=== PATIENT | female | born 1965 | race Caucasian/White ===

== ENCOUNTER 2024-02-25 17:37 | Inpatient (IN) | payer OTHER, SELFPAY ==
[2024-02-25] VITALS (9 sets, daily range): BP systolic 122–160; BP diastolic 55–85; BMI 29.2; BMI 27.5
--- NOTE | 2024-02-25 14:59 | ED.MUSCINJ ---
HPI-Injury
<Radha Woodward, FIRE PROTECTION DESIGNER - Last Filed: 02/26/24 11:35>
General
Chief Complaint: Fall
Source: patient and ambulance crew
Exam Limitations: none
Time Seen by Provider: 02/25/24 14:58
Nursing documentation reviewed up to this point in time: agreed with
History of Present Illness-Injury
Initial Injury comments:
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 Walkin up her daughter's driveway within past 2 hours, stumbled and fell injuring the left ankle.
Denies hitting head or any other injury. States minimal pain.
Past History
<Radha Woodward, FIRE PROTECTION DESIGNER - Last Filed: 02/26/24 11:35>
Past History
ED Past Medical History: Arrthythmia (afib), CVA, Hypercholesterolemia and Seizures
ED Past Surgical History: Appendectomy, Cardiac (pacemaker), , Gynecological and Orthopedic
Social History
Tobacco: Non-smoker
Alcohol: None
Personal:
Living: alone
Review of Systems
<Radha Woodward, FIRE PROTECTION DESIGNER - Last Filed: 02/26/24 11:35>
Review of Systems
Allergies reviewed?: Yes
All Other Systems: ROS reviewed and negative except as documented in HPI and ROS
Respiratory: Denies trouble breathing
Cardiac: Denies chest pain or syncope
ABD/GI: Denies nausea
Musculoskeletal: Reports other (left ankle injjury. Right leg weakness post CVA, wears brace, uses cane); Denies neck pain or back pain
Skin: Reports no symptoms
Neurological: Reports other (weakness right leg post CVA); Denies dizzy or headache
Phy Exam
<Radha Woodward, FIRE PROTECTION DESIGNER - Last Filed: 02/26/24 11:35>
Physical Exam
Physical Exam:
GENERAL: No acute distress. A&Ox3.
CONSTITUTIONAL: Afebrile.
EYES: clear, conjunctivae normal
ENMT: moist mucus membranes, Pharynx nl
RESPIRATORY: Regular respirations, nonlabored, lungs clear.
CARDIOVASCULAR: Regular rate and rhythm, no murmurs, no rubs.
GI: Soft, nontender, normal BS
MUSCULOSKELETAL: Swelling, tender left ankle. Distal n/v intact. moves toes well. Knee and rest of leg non tender. Moves with ease. Well perfused. Right leg in a brace, limited ROM
SKIN: Warm, dry, pink
PSYCH: Normal mood and affect. Well kept, interactive and appropriate
NEUROLOGIC: Awake, alert and oriented. No focal neurological deficits
Injury Course
<Radha Woodward, FIRE PROTECTION DESIGNER - Last Filed: 02/26/24 11:35>
Orders/Labs/Results
Orders:
Orders
02/25/24 14:58
Ankle, left 3 view CR [CR Ankle - Left Min 3 Views ] Urgent
Comment:
Reason For Exam: pain after fall
02/25/24 Dinner
Regular
At Your Request: Full Participation
02/25/24 15:08
CR Knee - Left 4 Or More View* Urgent
Comment:
Reason For Exam: left ankle injury
02/25/24 16:17
CT Lower Ext W/o Iv Cont Lt Urgent
Comment:
Reason For Exam: bimalleolar fx left ankle, ortho request
02/25/24 16:18
Electrocardiogram (*1) Urgent
Reason for Study: PreOp
EKG- Treatment ONCE
02/25/24 16:20
Morphine Sulfate 4 mg IV NOW STA
02/25/24 16:22
Stirrup Splint Left-Treatment ONCE
02/25/24 16:28
ORTHOPEDIC CONSULT Urgent
Consulting Provider: Luigi Howard
Was physician already notified: Yes
Reason for consult: bimalleolar left ankle fx
02/25/24 16:46
Complete Blood Count/With Diff Urgent
Comprehensive Metabolic Panel Urgent
02/25/24 17:07
Admit/Transfer Patient As Directed
Co-Sign Provider:
Level of Care: Inpatient admission
Assign to:: Medical/Surgical
Physician / Group: ivette
Diagnosis: left ankle fracture
Reason for Hospitalization: left ankle fracture
Expected length of stay greater than two midnights?: Yes
ELOS- Estimated Length of Stay in days: 2
I certify the patient meets the requirements for IP care: Yes
PRN Pain Medication Management As Directed
May give lesser potent ordered pain med per pt: Yes
preference::
Protocol:: Medication orders for pain may be administered in a
manner that supports deferring to patient preference
when the pt is:
- Requesting an ordered lesser potent pain medication.
Least to most potent pain medications are defined
as: acetaminophen < NSAID < tramadol < opioids
(morphine, oxycodone, hydromorphone).
- Requesting a lesser dose of the same medication IF
ORDERED.
- Requesting a less intrusive route of administration
if both routes are prescribed by the provider (PO <
IV).
02/25/24 17:08
Code Status As Directed
Resuscitation Status: Full Code
02/25/24 19:48
Acetaminophen [Tylenol] 650 mg PO Q4HPRN PRN
Atorvastatin [Lipitor] 40 mg PO QPM
Morphine Sulfate 2 mg IV Q4HPRN PRN
02/25/24 19:48
Activity As Directed
Activity Level: As Tolerated
Pneumatic Compression Sleeves As Directed
Type: Knee high
Vital Signs As Directed
Frequency: Per unit guidelines
DX Deep Vein Thrombosis Video Routine
02/25/24 20:00
Carbamazepine [Tegretol] 200 mg PO BID
Valproic Acid [Depakene] 750 mg PO BID
02/26/24 06:00
Levothyroxine [Synthroid] 88 mcg PO DAILY@0600
02/26/24 07:34
Complete Blood Count/With Diff IN AM
Comprehensive Metabolic Panel IN AM
02/26/24 08:00
Aspirin Low Dose EC [Aspir Low (Enteric Coated)] 81 mg PO DAILY
Carbamazepine [Tegretol] 400 mg PO DAILY
Famotidine [Pepcid] 20 mg PO DAILY
Sertraline HCl [Zoloft] 100 mg PO DAILY
Abnormal Lab Results
02/25/24
16:46
MPV 10.5 H fL
(7.4-10.4)
Creatinine 0.5 L mg/dL
(0.6-1.0)
Glucose 114 H mg/dl
(70-99)
ALT 41 H U/L
(0-35)
02/25/24 16:46
02/25/24 16:46
Yield Improvement Engineer consulted with Physician
Yield Improvement Engineer consulted with physician?: Yes
Name of Physician Consulted: Yogi
<Hammad Calix MD - Last Filed: 02/25/24 16:29>
Orders/Labs/Results
Orders:
Orders
02/25/24 14:58
Ankle, left 3 view CR [CR Ankle - Left Min 3 Views ] Urgent
Comment:
Reason For Exam: pain after fall
02/25/24 Dinner
Regular
At Your Request: Full Participation
02/25/24 15:08
CR Knee - Left 4 Or More View* Urgent
Comment:
Reason For Exam: left ankle injury
02/25/24 16:17
CT Lower Ext W/o Iv Cont Lt Urgent
Comment:
Reason For Exam: bimalleolar fx left ankle, ortho request
02/25/24 16:18
Electrocardiogram (*1) Urgent
Reason for Study: PreOp
EKG- Treatment ONCE
02/25/24 16:20
Morphine Sulfate 4 mg IV NOW STA
02/25/24 16:22
Stirrup Splint Left-Treatment ONCE
02/25/24 16:28
ORTHOPEDIC CONSULT Urgent
Consulting Provider: Luigi Howard
Was physician already notified: Yes
Reason for consult: bimalleolar left ankle fx
02/25/24 16:46
Complete Blood Count/With Diff Urgent
Comprehensive Metabolic Panel Urgent
02/25/24 17:07
Admit/Transfer Patient As Directed
Co-Sign Provider:
Level of Care: Inpatient admission
Assign to:: Medical/Surgical
Physician / Group: ivette
Diagnosis: left ankle fracture
Reason for Hospitalization: left ankle fracture
Expected length of stay greater than two midnights?: Yes
ELOS- Estimated Length of Stay in days: 2
I certify the patient meets the requirements for IP care: Yes
PRN Pain Medication Management As Directed
May give lesser potent ordered pain med per pt: Yes
preference::
Protocol:: Medication orders for pain may be administered in a
manner that supports deferring to patient preference
when the pt is:
- Requesting an ordered lesser potent pain medication.
Least to most potent pain medications are defined
as: acetaminophen < NSAID < tramadol < opioids
(morphine, oxycodone, hydromorphone).
- Requesting a lesser dose of the same medication IF
ORDERED.
- Requesting a less intrusive route of administration
if both routes are prescribed by the provider (PO <
IV).
02/25/24 17:08
Code Status As Directed
Resuscitation Status: Full Code
02/25/24 19:48
Acetaminophen [Tylenol] 650 mg PO Q4HPRN PRN
Atorvastatin [Lipitor] 40 mg PO QPM
Morphine Sulfate 2 mg IV Q4HPRN PRN
02/25/24 19:48
Activity As Directed
Activity Level: As Tolerated
Pneumatic Compression Sleeves As Directed
Type: Knee high
Vital Signs As Directed
Frequency: Per unit guidelines
DX Deep Vein Thrombosis Video Routine
02/25/24 20:00
Carbamazepine [Tegretol] 200 mg PO BID
Valproic Acid [Depakene] 750 mg PO BID
02/26/24 06:00
Levothyroxine [Synthroid] 88 mcg PO DAILY@0600
02/26/24 07:34
Complete Blood Count/With Diff IN AM
Comprehensive Metabolic Panel IN AM
02/26/24 08:00
Aspirin Low Dose EC [Aspir Low (Enteric Coated)] 81 mg PO DAILY
Carbamazepine [Tegretol] 400 mg PO DAILY
Famotidine [Pepcid] 20 mg PO DAILY
Sertraline HCl [Zoloft] 100 mg PO DAILY
Abnormal Lab Results
02/25/24
16:46
MPV 10.5 H fL
(7.4-10.4)
Creatinine 0.5 L mg/dL
(0.6-1.0)
Glucose 114 H mg/dl
(70-99)
ALT 41 H U/L
(0-35)
02/25/24 16:46
02/25/24 16:46
<Radha Penaloza Day, FIRE PROTECTION DESIGNER - Last Filed: 02/26/24 11:35>
MDM/Problems Addressed
Differential Diagnosis Includes:
ankle fracture, sprain, dislocation
MDM/Problems Addressed:
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 Walkin up her daughter's driveway within past 2 hours, stumbled and fell injuring the left ankle.
Denies hitting head or any other injury. States minimal pain.
4:20 p.m.
Xray left ankle: Read by this examiner: bimalleolar fracture, non displaced.
Xray left knee: Read by this examiner: normal
Consulted Orthopedic Dr. Howard, pictures sent.
He request patient be admitted to hospitalist and he will take her to surgery tomorrow. Patient and family informed and are in agreement.
Pt last ate 3 hours ago
Hospitalist notified of admission
Ortho consult in.
Chronic conditions affecting care: Arrhythmia (afib) and Neurological disorder (seizure)
<Radha Woodward NP - Last Filed: 02/26/24 11:35>
*Critical Care Note
Total Time (30-74mins, 75-104mins- exclusive of procedures): Not Applicable
ED Attending Note
<Radha Woodward FIRE PROTECTION DESIGNER - Last Filed: 02/26/24 11:35>
-
Portions of this chart may have been created with voice recognition software.� Occasional wrong word or��sound alike� substitutions may have occurred due to the inherent limitations of voice recognition software.
<Hammad Calix MD - Last Filed: 02/25/24 16:29>
ED Attending Note
Patient seen and examined by attending physician: Yes
ED Attending Note:
I have seen and evaluated the patient with a [id number] encounter. I have spoken to the advance practicer provider and involved in the medical history, the physical exam, medical decision making.
Evaluation and management service: agree unless noted differently below.
Results interpretation: agree unless noted differently below.
Focused HPI: 59-year-old female with history as documented presents to the ER for evaluation of left ankle injury. Patient was walking up the steps on the reports (she estimates 2 or 3 steps) and when she got to the stop she slipped and she fell.
She injured her left ankle she said she heard a snap. She denies any pain in the left knee. She says she did not hit her head or back and denies any headache, neck pain, back pain. No pain in the ribs or abdomen. No pain in the upper
extremities. She is not on blood thinners only baby aspirin.
Physical exam: Awake alert no distress. Hypertensive but otherwise normal vitals. Head is atraumatic. No tenderness in the cervical spine, no signs of trauma to the back or flank and no tenderness in thoracic or lumbar spine. No signs of trauma
the upper extremities. On exam of her left lower extremity she has deformity the left ankle with external rotation the left ankle compared to the knee. She has tenderness of both lateral and medial malleolus and swelling around the ankle. She has
a good strong DP pulse on the left. No tenderness of the left knee. Right lower extremity atraumatic.
Medical Decision Makin-year-old female presents for evaluation after slip and fall with left ankle injury. Suspect fracture. Will send for x-ray of the ankle and knee on the left. Pain control. Reassess after the above.
X-ray shows bimalleolar fracture. Nurse practitioner discussed with orthopedist�will splint, admit for OR tomorrow. Discussed with hospitalist.
Discharge Plan
Departure
Patient Disposition: Admit
Date of Disposition: 02/25/24
Time of Disposition: 16:19
Admit to: Med/Surg
Presentation/result/management discussed w/ accepting MD/DO: Hospitalist
Patient with high blood pressure during this ER visit?: No
Condition: Good
Discharge Problem:
Bimalleolar fracture of left ankle
Interventions
Interventions:
*General Assessment Last Done: 02/25/24 14:55
*ED COVID-19 Vaccine History Last Done: 02/25/24 14:55
*Nursing Disposition Last Done: 02/25/24 19:35
ED-Musculoskeletal Assessment Last Done: 02/25/24 16:00
ED- Neurological Assessment Last Done: 02/25/24 16:00
ED-Skin Assessment Last Done: 02/25/24 16:00
Discharge Date and Time
Discharge Date/Time: 02/25/24 19:35
[2024-02-25] MEDS: MORPHINE SULFATE 4 MG IV (16:53)
[2024-02-25 17:10] LABS: % Basophils 0.3 % (0-2); % Eosinophils 0.6 % (0-6); % Immature Granulocytes 0.3 % (0-0.5); % Lymphocytes 20.8 % (20.5-51.1); % Monocytes 6.5 % (1.7-9.3); % Neutrophils 71.5 % (42.2-75.2); Absolute Eosinophils 0.1 10^3/uL (0-0.7); Absolute Lymphocytes 1.9 10^3/uL (1.2-3.4); Absolute Monocytes 0.6 10^3/uL (0.1-0.6); Absolute Neutrophils 6.4 10^3/uL (1.4-6.5); Hematocrit 40.4 % (37.0-47.0); Hemoglobin 13.8 g/dL (12.0-16.0); Mean Corp Hgb Conc. 34.2 g/dL (33.0-37.0); Mean Corpuscular Hgb 30.6 pg (27.0-31.0); Mean Corpuscular Volume 89.6 fL (81.0-99.0); Mean Platelet Volume 10.5 fL (7.4-10.4); Nucleated Red Blood Cells % 0 %; Platelet Count 200 10^3/uL (130-400); Red Blood Cell Count 4.51 10^6/uL (4.20-5.40); Red Cell Dist. Width 12.7 % (11.5-14.5); White Blood Cell Count 8.9 10^3/uL (4.8-10.8)
--- NOTE | 2024-02-25 17:13 | HPS.HSE ---
Addendum entered and electronically signed by Vinnie Crenshaw MD 02/25/24 17:18:
Patient at elevated risk for cardiac complications post surgery due to history of Afib but appears well compensated and can proceed to surgery.
Original Note:
Family Physician
-
Family Physician: Wilfrid Awad
Chief Complaint
-
fall
History of Present Illness
59-year-old female past medical history of CVA with residual right leg weakness, seizure disorder, paroxysmal atrial fibrillation, pacemaker, PFO closure, hyperlipidemia presenting with left ankle injury. She was walking on her daughter's deck and
lost her balance and fell. She was having pain in her left ankle. Denies hitting her head. Denies dizziness or passing out.
She has some gait dysfunction from prior cerebellar CVA with residual right leg weakness.
Denies any chest pain or shortness of breath or swelling.
Denies smoking or alcohol use.
Medical History
Past Medical History
Past Medical History: Reports Other (CVA with residual right leg weakness, seizure disorder, paroxysmal atrial fibrillation, pacemaker, PFO closure, hyperlipidemia)
Past Surgical History: Reports Other ( Appendectomy, Cardiac (pacemaker), , Gynecological and Orthopedic)
Social History
Tobacco: Non-smoker
Alcohol: None
Drug: None
Family History
Family History: Not pertinent
Allergies / Home Medications
Allergies reflects when Allergies were last updated in [employer]
Home Medications with original date entered in [employer]
Allergy/Medication List:
Allergies
Allergy/AdvReac Type Severity Reaction Status Date / Time
hydromorphone HCl Allergy Unknown Verified 12/19/22 13:40
[From Dilaudid]
Home Medications
aspirin 81 mg tablet,delayed release (Ecotrin Low Strength) 81 mg PO DAILY 09/16/15
atorvastatin 40 mg tablet 40 mg PO QPM 09/16/15
carbamazepine 200 mg tablet 200 mg PO HS 09/16/15
carbamazepine 200 mg tablet 400 mg PO DAILY 09/16/15
levothyroxine 88 mcg tablet (Synthroid) 88 mcg PO DAILY 09/16/15
ranitidine HCl 150 mg capsule 150 mg PO DAILY 09/16/15
sertraline 100 mg tablet 100 mg PO DAILY 09/16/15
valproic acid 250 mg capsule 750 mg PO BID 09/16/15
Review of Systems
-
History Source: Patient
A 12 point ROS was completed and negative except as noted: Yes
Constitutional: Reports No Symptoms
EENT: Reports No Symptoms
Respiratory: Reports No Symptoms
Cardiac: Reports No Symptoms
Abdomen/GI: Reports No Symptoms
: Reports No Symptoms
Musculoskeletal: Reports See HPI
Skin: Reports No Symptoms
Neurological: Reports No Symptoms
Endocrine: Reports No Symptoms
Hematologic/Lymphatic: Reports No Symptoms
Psych: Reports No Symptoms
Physical Exam
Vital Signs
Vital Signs
Temp Pulse Resp BP Pulse Ox
98.3 F 72 18 154/83 100
02/25/24 14:55 02/25/24 14:55 02/25/24 14:55 02/25/24 14:55 02/25/24 14:55
Physical Exam
General: Well Developed, Well Nourished and No Apparent Distress
HEENT: NormoCephalic, Moist mucous membranes and Atraumatic
Respiratory: Clear
Cardiac: S1/S2 and Regular Rhythm; No Murmur or Rub
GI: Soft, Non Tender, Non Distended and Normal Bowel Sounds; No Organomegaly
Rectal: Deferred by Provider
Musculoskeletal: No Clubbing, No Cyanosis and No Edema
Skin: No Rash
Neuro: Nonfocal/grossly intact
Laboratory Results
-
02/25/24 16:46
Data Reviewed
-
Lab Data: Labs Reviewed by me
Old Records: Reviewed
Impression/Plan
-
IMPRESSION:
PLAN:
# Left ankle bimalleolar fracture
-CT scan pending
-Ortho consulted and planning for surgery tomorrow
-N.p.o. past midnight
-Tylenol, morphine for pain
-Labs pending
History of CVA x 2 with residual right leg weakness
-Continue aspirin
Seizure disorder
-Continue carbamazepine, valproic acid
History of paroxysmal atrial fibrillation with pacemaker
History of PFO closure
Hyperlipidemia
-Continue statin
Hypothyroidism
-Continue levothyroxine
Anxiety/depression
-Continue sertraline
History of hysterectomy
Full code
DVT prophylaxis�SCDs
N.p.o. past midnight
[2024-02-25 17:20] LABS: ALT (SGPT) 41 U/L (0-35); AST (SGOT) 22 U/L (14-36); Albumin 4.8 g/dl (3.5-5.0); Alkaline Phosphatase 83 U/L (38-126); Blood Urea Nitrogen 16 mg/dl (7-17); Calcium 9.3 mg/dl (8.4-10.2); Carbon Dioxide 25 mmol/L (22-30); Chloride 101 mmol/L (98-107); Estimated Creatinine Clearance 112 ml/min; Glucose 114 mg/dl (70-99); Potassium 4.4 mmol/L (3.5-5.1); Sodium 137 mmol/L (135-145); Total Bilirubin 0.3 mg/dl (0.2-1.3); Total Protein 7.5 g/dl (6.3-8.2); eGFR > 60.00
[2024-02-25] MEDS: LIPITOR 40 MG PO (20:21)
[2024-02-25] MEDS: MORPHINE SULFATE 2 MG IV ×2 (20:22→23:26)
--- NOTE | 2024-02-25 20:39 | CON.ORTHO ---
Consultation
-
Date/Time Consultation Requested: Feb 20
Date/Time Consultation Performed: Feb 20
Requesting Provider: ISHA Gutierrez
Performing Provider: [employer]
Reason for Consultation: Left ankle pilon fracture
Consultation - Orthopedics
History
HPI
Requested in consultation to this pleasant 59 y/o female with PMH of A-fib on ASA, Pacemaker, CVA x 2 with residual leg weakness, Hypercholesterolemia and Seizures after a mechanical fall in her daughter's driveway resulting in an injury to her left
ankle. Denies prodrome, LOC, or headstrike. No previous injuries or issues with the left ankle. Transported here to [facility] where xrays and a CT confirmed a pilon fracture of her left ankle.
Past History
Past Medical History: Arrthythmia (afib), CVA, Hypercholesterolemia and Seizures
Past Surgical History: Appendectomy, Cardiac (pacemaker), , Gynecological and Orthopedic
Social History
Tobacco: Non-smoker
Alcohol: None
Personal:
Living: alone
Family History:
Non-contributory
Review of Systems
Allergies reviewed?: Yes
All Other Systems: ROS reviewed and negative except as documented in HPI and ROS
Respiratory: Denies trouble breathing
Cardiac: Denies chest pain or syncope
ABD/GI: Denies nausea
Musculoskeletal: Reports other (left ankle injjury. Right leg weakness post CVA, wears brace, uses cane); Denies neck pain or back pain
Skin: Reports no symptoms
Neurological: Reports other (weakness right leg post CVA); Denies dizzy or headache
Allergies / Home Medications
Allergy/AdvReac Type Severity Reaction Status Date / Time
hydromorphone HCl Allergy Unknown Verified 12/19/22 13:40
[From Dilaudid]
�Medication �Instructions �Recorded
aspirin 81 mg tablet,delayed 81 mg PO HS 09/16/15
release (Ecotrin Low Strength)
carbamazepine 200 mg tablet 200 mg PO BID 09/16/15
levothyroxine 88 mcg tablet 88 mcg PO HS 09/16/15
(Synthroid)
sertraline 100 mg tablet 100 mg PO HS 09/16/15
valproic acid 250 mg capsule 750 mg PO BID 09/16/15
famotidine 20 mg tablet (Pepcid) 20 mg PO DAILY 02/25/24
rosuvastatin 40 mg tablet 40 mg PO HS 02/25/24
Vital Signs / Lab Results
Temp Pulse Resp BP Pulse Ox
98.5 F 63 18 122/61 92
02/25/24 19:53 02/25/24 20:36 02/25/24 19:53 02/25/24 20:36 02/25/24 19:53
02/25/24 16:46
02/25/24 16:46
Assessment / Plan
PE: Afeb. Bedrest. LLE splinted. Skin intact. Generalized pain about the left ankle. Edematous. Calf soft, nontender. DNVI LLE
Diagnostics: Xrays and CT confirmed a fracture/dislocation of the left ankle
Impression: KISHA
Plan: At length bedside discussion with the patient yields her understanding to the nature of her left ankle injury. Operative and nonoperative management discussed, including the RBAs of each approach. After discussing all the risks of each she has
accepted all the proposed risks of surgical correction and wishes to proceed. As the OR and Dr. Howard's availability permits we will look to proceed with surgical correction in the form of open treatment Tuesday AM. We discussed the post-op and
rehab course, including preliminary WB restrictions/progression. We will appreciate CM assistance with disposition post surgery. Surgical and blood consents have julito signed and placed to the patient's chart. Operative site has been marked as the
LEFT ankle. Patient is and will remain NPO. T&S completed. 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 Remain splinted and at bedrest for now. Continue with as much elevation as possible. As long as she is optimized for surgery we will plan to proceed. OR
aware. Will follow
[2024-02-25] MEDS: TEGRETOL 200 MG PO (21:42)
[2024-02-25] MEDS: DEPAKENE 750 MG PO (21:43)
[2024-02-26] VITALS (9 sets, daily range): BP systolic 103–115; BP diastolic 51–62; PULSE 60; O2SAT 97; BMI 27.5
[2024-02-26] MEDS: MORPHINE SULFATE 2 MG IV ×2 (03:09→06:09)
--- NOTE | 2024-02-26 04:32 | PTCARENOTE ---
Pt arrived to unit @ 2014, VSS denies chest pain or SOB. Reports pain LLE 06/07. LLE in splint with acewrap, CDI neurovascular WNL. Pt oriented to unit and hospital policies, call stephens within reach
[2024-02-26] MEDS: SYNTHROID 88 MCG PO (06:10)
[2024-02-26] MEDS: TEGRETOL 200 MG PO ×2 (07:32→21:26)
[2024-02-26] MEDS: DEPAKENE 750 MG PO ×2 (07:32→21:25)
--- NOTE | 2024-02-26 07:43 | W.PN.HOSP.TC ---
Today's Communication/Plan
-
OR
Assessment / Plan
Assessment / Plan
Gen: NAD, AAOx3.
Eyes: EOMI, PERRLA, no scleral icterus.
Neck: supple.
CV: RRR, +S1/S2, no m/r/g.
Resp: CTAB, no rales, wheezes, or rhonchi.
Abd: +BS, soft, NT, ND
Skin: No rashes.
Neuro: CN 2-12 intact
Psych: Normal mood and affect.
CT LLE: Comminuted, displaced trimalleolar fracture with associated tibiotalar dislocation. There is lateral subluxation of the talus relative to the distal tibia. The distal tibial fracture appears to involve approximate 45% of the articular
surface.
Acute Left ankle trimalleolar fracture
-CT above
-for OR this AM
-NPO
-Tylenol, morphine for pain
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
-Continue aspirin
Seizure disorder
-Continue carbamazepine, valproic acid
History of paroxysmal atrial fibrillation with pacemaker
History of PFO closure
Hyperlipidemia
-Continue statin
Hypothyroidism
-Continue levothyroxine
Anxiety/depression
-Continue sertraline
History of hysterectomy
FULL/SCDs (recommend pharmacological DVT prophylaxis postop if okay with Ortho)
Anticipated Discharge: 24 - 48 hours
Subjective/Interval History
-
Date of Service: February 26, 2024
No new complaints. Denies CP/SOB/abd pain.
Objective Data
-
Labs:
Laboratory Results
02/26/24
07:34
WBC Pending
Hgb Pending
Hct Pending
Plt Count Pending
Sodium Pending
Potassium Pending
Chloride Pending
Carbon Dioxide Pending
BUN Pending
Creatinine Pending
Glucose Pending
Calcium Pending
Total Bilirubin Pending
AST Pending
ALT Pending
Alkaline Phosphatase Pending
Vital Signs:
Vital Signs
Temp Pulse Resp BP Pulse Ox
98.5 F 51 16 136/55 99
02/25/24 23:42 02/25/24 23:42 02/25/24 23:42 02/25/24 23:42 02/25/24 23:42
I&O
02/25/24 02/26/24 02/27/24
06:59 06:59 06:59
Intake Total 480 / 480
Output Total 150 / 150
Balance 330 / 330
[2024-02-26 08:17] LABS: % Basophils 0.3 % (0-2); % Eosinophils 0.4 % (0-6); % Immature Granulocytes 0.3 % (0-0.5); % Lymphocytes 36.2 % (20.5-51.1); % Monocytes 10.9 % (1.7-9.3); % Neutrophils 51.9 % (42.2-75.2); Absolute Lymphocytes 2.6 10^3/uL (1.2-3.4); Absolute Monocytes 0.8 10^3/uL (0.1-0.6); Absolute Neutrophils 3.7 10^3/uL (1.4-6.5); Hematocrit 36.9 % (37.0-47.0); Hemoglobin 12.5 g/dL (12.0-16.0); Mean Corp Hgb Conc. 33.9 g/dL (33.0-37.0); Mean Corpuscular Hgb 30.6 pg (27.0-31.0); Mean Corpuscular Volume 90.4 fL (81.0-99.0); Mean Platelet Volume 10.4 fL (7.4-10.4); Nucleated Red Blood Cells % 0 %; Platelet Count 178 10^3/uL (130-400); Red Blood Cell Count 4.08 10^6/uL (4.20-5.40); White Blood Cell Count 7.1 10^3/uL (4.8-10.8)
[2024-02-26 08:38] LABS: ALT (SGPT) 34 U/L (0-35); AST (SGOT) 20 U/L (14-36); Alkaline Phosphatase 73 U/L (38-126); Blood Urea Nitrogen 15 mg/dl (7-17); Calcium 8.7 mg/dl (8.4-10.2); Carbon Dioxide 27 mmol/L (22-30); Chloride 102 mmol/L (98-107); Estimated Creatinine Clearance 98 ml/min; Glucose 94 mg/dl (70-99); Potassium 4.2 mmol/L (3.5-5.1); Sodium 136 mmol/L (135-145); Total Bilirubin 0.4 mg/dl (0.2-1.3); Total Protein 6.4 g/dl (6.3-8.2); eGFR > 60.00
[2024-02-26] MEDS: NSS 1000 IV (10:51)
[2024-02-26] MEDS: PEPCID 20 MG PO (10:53)
[2024-02-26] MEDS: ZOLOFT 100 MG PO (10:53)
--- NOTE | 2024-02-26 12:43 | CM ---
reviewed the chart notes and spoke with the patient and her daughter at the bedside. The patient is recently (01/27/24). The patient resides with her daughter in a one story home with two steps to enter via front door and then another
step up into bedroom. The patient has had [facility] in the past, and been to [facility] and [facility]. The patient has rolling walker, cane, and shower chair. The patient confirmed her pharmacy of choice is [facility].
continues to be available to patient/family and is monitoring medical plan for needs at discharge.
Plan: Discharge plans will depend on the patient's progress. If SNF recommended, bed will need to be found and precert obtained.
[2024-02-26] MEDS: TYLENOL 650 MG PO ×3 (12:45→21:28)
[2024-02-26] MEDS: ASPIRIN 325 MG PO (16:55)
[2024-02-26] MEDS: LIPITOR 40 MG PO (16:55)
[2024-02-26] MEDS: ANCEF 5 IV ×2 (16:56→23:34)
--- NOTE | 2024-02-26 18:26 | PTCARENOTE ---
Patient did well today transferring from bed to commode and from commode to chair, then from chair back to bed. She maintained NWB status to LLE and hopped on R leg with cane. Was very steady with transfers.
[2024-02-26] MEDS: COLACE 100 MG PO (21:25)
[2024-02-26] MEDS: SENOKOT PO (21:25)
[2024-02-27] VITALS (7 sets, daily range): BP systolic 96–142; BP diastolic 49–69; PULSE 62–66; O2SAT 98
[2024-02-27] MEDS: NSS 1000 IV ×2 (02:14→09:11)
[2024-02-27] MEDS: TYLENOL 650 MG PO ×4 (03:04→21:43)
[2024-02-27] MEDS: ROXICODONE 5 MG PO ×3 (05:28→15:35)
[2024-02-27] MEDS: SYNTHROID 88 MCG PO (05:29)
[2024-02-27 07:18] LABS: Hemoglobin 12.1 g/dL (12.0-16.0)
[2024-02-27 07:25] LABS: Blood Urea Nitrogen 15 mg/dl (7-17); Calcium 8.7 mg/dl (8.4-10.2); Carbon Dioxide 26 mmol/L (22-30); Chloride 104 mmol/L (98-107); Estimated Creatinine Clearance 98 ml/min; Glucose 81 mg/dl (70-99); Potassium 4.1 mmol/L (3.5-5.1); Sodium 139 mmol/L (135-145); eGFR > 60.00
--- NOTE | 2024-02-27 09:04 | CM ---
Addendum entered by Lynda Oviedo RN 02/27/24 13:56:
Attempted auth for [facility] through insurance. Request now going to [employer]. If not approved would then need to look at SNFs.
Original Note:
Reviewed the chart notes. PT recommending Acute Rehab. Referral sent to [facility] for review. CM continues to be available to patient/family and is monitoring medical plan for needs at discharge.
Plan: Discharge to hopefully Acute Rehab vs SNF.
[2024-02-27] MEDS: SENOKOT 17.2 MG PO ×2 (09:11→20:29)
[2024-02-27] MEDS: TEGRETOL 200 MG PO ×2 (09:11→20:30)
[2024-02-27] MEDS: COLACE 100 MG PO ×2 (09:11→20:29)
[2024-02-27] MEDS: ASPIRIN 325 MG PO (09:11)
[2024-02-27] MEDS: ZOLOFT 100 MG PO (09:11)
[2024-02-27] MEDS: PEPCID 20 MG PO (09:11)
[2024-02-27] MEDS: DEPAKENE 750 MG PO ×2 (09:11→20:29)
--- NOTE | 2024-02-27 11:35 | W.PN.ORTHO ---
Today's Communication / Plan
-
Continue treatment per the primary team, appreciate their care
Dispo home with VNS vs. rehab, appreciate CM
Continue strict NWB LLE
PT/OT
ASA 325mg x 4 weeks for DVT ppx
Dressing/splint to remain
Ice/elevation for pain control, narcs prn
Outpatient Ortho follow-up in 2 weeks for staple removal
Will follow-up
Assessment
.
Distal Motor Intact: Yes
Dressing:
Clean, dry and intact. Dressing and splint in place
Assessment:
POD#1 Left ankle ORIF
Overall doing/feeling well
Calf soft, nontender
Plan
.
Surgery / Date: Left ankle ORIF Feb 20 ([facility])
DVT Prophylaxis: Aspirin
Activity:
Out of bed. NWB LLE
PT/OT
Discharge Plan: Other (per CM. Home vs. Rehab)
Subjective
.
.:
Patient resting comfortably. very mild pain endorsed around the left ankle
Vital Signs and Labs
.
Vital Signs and Labs:
Lab Results
02/27/24 06:24
02/27/24 06:24
Temp Pulse Resp BP Pulse Ox
97.7 F 62 18 96/61 98
02/27/24 07:00 02/27/24 07:00 02/27/24 07:00 02/27/24 07:00 02/27/24 07:00
--- NOTE | 2024-02-27 11:49 | W.PN.HOSP.TC ---
Today's Communication/Plan
-
await placement
pain control
Assessment / Plan
Assessment / Plan
Gen: NAD, AAOx3.
Eyes: EOMI, PERRLA, no scleral icterus.
Neck: supple.
CV: RRR, +S1/S2, no m/r/g.
Resp: CTAB, no rales, wheezes, or rhonchi.
Abd: +BS, soft, NT, ND
Skin: No rashes.
MSK-LLE splint/mati wrap in place.
Neuro: CN 2-12 intact
Psych: Normal mood and affect.
CT LLE: Comminuted, displaced trimalleolar fracture with associated tibiotalar dislocation. There is lateral subluxation of the talus relative to the distal tibia. The distal tibial fracture appears to involve approximate 45% of the articular
surface.
Acute Left ankle trimalleolar fracture
-CT above
-Status post open reduction internal fixation of left fibula, left medial malleolus and left distal tibia
-Started on aspirin for DVT prophylaxis per orthopedic. Plan for 4 weeks.
-pain control. bowel regimen.
-PT/OT recommends acute rehab. PM&R consulted.
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
-Continue aspirin
Seizure disorder
-Continue carbamazepine, valproic acid
History of paroxysmal atrial fibrillation with pacemaker
History of PFO closure
Hyperlipidemia
-Continue statin
Hypothyroidism
-Continue levothyroxine
Anxiety/depression
-Continue sertraline
History of hysterectomy
FULL/SCDs/asa
Dispo-medically stable. Await placement.
Anticipated Discharge: Today
Subjective/Interval History
-
Date of Service: February 27, 2024
states of left leg pain today
ice pack placed
Objective Data
-
Labs:
Laboratory Results
02/27/24
06:24
Hgb 12.1
Hct 36.0 L
Sodium 139
Potassium 4.1
Chloride 104
Carbon Dioxide 26
BUN 15
Creatinine 0.5 L
Glucose 81
Calcium 8.7
Vital Signs:
Vital Signs
Temp Pulse Resp BP Pulse Ox
97.7 F 56 18 105/55 98
02/27/24 11:00 02/27/24 11:00 02/27/24 11:00 02/27/24 11:00 02/27/24 11:00
I&O
02/26/24 02/27/24 02/28/24
06:59 06:59 06:59
Intake Total 2450 / 2450
Output Total 2270 / 2270
Balance 180 / 180
[2024-02-27] MEDS: LIPITOR 40 MG PO (17:22)
[2024-02-27] MEDS: ROXICODONE 10 MG PO (21:43)
[2024-02-28] MEDS: TYLENOL 650 MG PO (04:21)
[2024-02-28] MEDS: ROXICODONE 5 MG PO (04:21)
[2024-02-28] MEDS: SYNTHROID 88 MCG PO (05:20)
--- NOTE | 2024-02-28 05:52 | W.PN.ORTHO ---
Today's Communication / Plan
-
59-year-old female POD #2 Left Ankle ORIF 02/26/[address] Howard.
- Continue strict NWB LLE.
- PT/OT.
- ASA 325mg x 4 weeks for DVT ppx.
- Dressing/splint to remain.
- Ice/elevation for edema control. Pain control per primary team.
- Continue treatment per the primary team, appreciate their care.
- Per CM, discharge to hopefully Acute Rehab vs SNF.
- Outpatient Ortho follow-up in 2 weeks for staple removal and application of short-leg cast x6 additional weeks.
- Orthopedic surgery will sign off at this time. Please reengage with any further questions or concerns.
Assessment
.
Distal Motor Intact: Yes
Dressing:
Clean, dry and intact. Dressing and splint in place.
Calf is soft and nontender to palpation.
Assessment:
POD#2 Left ankle ORIF.
Plan
.
Surgery / Date: Left ankle ORIF Feb 20 ([facility])
DVT Prophylaxis: Aspirin
Activity:
Out of bed.
PT/OT
Discharge Information:
Appreciate CM.
Subjective
.
.:
Patient resting comfortably in bed. Denies any new complaints or concerns. Reports left ankle pain controlled at this time. Denies any paresthesias.
Vital Signs and Labs
.
Vital Signs and Labs:
Lab Results
02/27/24 06:24
02/27/24 06:24
Temp Pulse Resp BP Pulse Ox
99 F 61 20 105/56 95
02/27/24 22:49 02/27/24 22:49 02/27/24 22:49 02/27/24 22:49 02/27/24 22:49
[2024-02-28 07:33] VITALS: BP 119/67
[2024-02-28] MEDS: PROTONIX 40 MG PO (09:04)
[2024-02-28] MEDS: DEPAKENE 750 MG PO (09:04)
[2024-02-28] MEDS: SENOKOT 17.2 MG PO (09:04)
[2024-02-28] MEDS: ASPIRIN 325 MG PO (09:04)
[2024-02-28] MEDS: TEGRETOL 200 MG PO (09:05)
[2024-02-28] MEDS: PEPCID 20 MG PO (09:05)
[2024-02-28] MEDS: ZOLOFT 100 MG PO (09:05)
[2024-02-28] MEDS: MIRALAX 17 GRAMS PO (09:05)
[2024-02-28] MEDS: COLACE 100 MG PO (09:05)
--- NOTE | 2024-02-28 09:57 | CM ---
Addendum entered by Ashlie Landis 02/28/24 13:31:
Patient accepted at [facility]
NPI# [id number]
FAHAD Shipman NPI# [id number]
Insurance authorization obtained
Reference # [id number]
Start date 02/28/24, LCD/NRD 03/05/24
updates to p# [phone]
Ambulance transport not approved.
Discussed transport with patient, she wants to see if family member can transport.
Nursing will discuss with patient.
IMM completed.
[facility]
report# [phone]

Addendum entered by Ashlei Landis 02/28/24 11:03:
Patient aware case will not be appealed by PMR MD.
Skilled rehab referrals sent to local facilities. Will need auth once bed available.
Original Note:
TC to [facility] re request for Acute Rehab[- pended reference # [id number].
Per Aylin Warner- the case was sent for MDR review at [facility] and their MDR determined Acute rehab was not warranted.
Acute Rehab was denied, Peer to Peer review # [id number].
TC to [facility] and updated.
--- NOTE | 2024-02-28 11:35 | W.PN.HOSP.TC ---
Today's Communication/Plan
-
Dispo-medically stable. Await placement to SNF
Assessment / Plan
Assessment / Plan
Gen: NAD, AAOx3.
Eyes: EOMI, PERRLA, no scleral icterus.
Neck: supple.
CV: RRR, +S1/S2, no m/r/g.
Resp: CTAB, no rales, wheezes, or rhonchi.
Abd: +BS, soft, NT, ND
Skin: No rashes.
MSK-LLE splint/mati wrap in place.
Neuro: CN 2-12 intact
Psych: Normal mood and affect.
CT LLE: Comminuted, displaced trimalleolar fracture with associated tibiotalar dislocation. There is lateral subluxation of the talus relative to the distal tibia. The distal tibial fracture appears to involve approximate 45% of the articular
surface.
Acute Left ankle trimalleolar fracture
-CT above
-Status post open reduction internal fixation of left fibula, left medial malleolus and left distal tibia
-Started on aspirin for DVT prophylaxis per orthopedic. Plan for 4 weeks.
-pain control. bowel regimen.
-PT/OT recommends acute rehab vs. SNF. Acute rehab denied by insurance. Plan for SNF. Await placement.
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
-Continue aspirin
Seizure disorder
-Continue carbamazepine, valproic acid
History of paroxysmal atrial fibrillation with pacemaker
History of PFO closure
Hyperlipidemia
-Continue statin
Hypothyroidism
-Continue levothyroxine
Anxiety/depression
-Continue sertraline
History of hysterectomy
FULL/SCDs/asa
Dispo-medically stable. Await placement.
Anticipated Discharge: Today
Subjective/Interval History
-
Date of Service: February 28, 2024
states of leg soreness/pain
Objective Data
-
Vital Signs:
Vital Signs
Temp Pulse Resp BP Pulse Ox
99.0 F 63 20 119/67 97
02/28/24 07:33 02/28/24 07:33 02/28/24 07:33 02/28/24 07:33 02/28/24 07:33
I&O
02/27/24 02/28/24 02/29/24
06:59 06:59 06:59
Intake Total 2450 / 2450 660 / 660
Output Total 2270 / 2270 450 / 450
Balance 180 / 180 210 / 210
[2024-02-28] MEDS: DULCOLAX 10 MG PO (12:29)
--- NOTE | 2024-02-28 13:47 | W.DCSUMMARY ---
Discharge Summary
Discharge Data
Date of Admission: 02/25/24
Date of Discharge: 02/28/24
-
Pending Results: No
Hospital Course
59-year-old female past medical history of CVA with residual right leg weakness, seizure disorder, paroxysmal atrial fibrillation, pacemaker, PFO closure, hyperlipidemia presenting with left ankle injury. She was walking on her daughter's deck and
lost her balance and fell. She was having pain in her left ankle. Underwent CT of the left lower extremity. CT LLE: Comminuted, displaced trimalleolar fracture with associated tibiotalar dislocation. There is lateral subluxation of the talus
relative to the distal tibia. The distal tibial fracture appears to involve approximate 45% of the articular surface. Orthopedic was consulted and patient underwent to the operating room. Status post open reduction internal fixation of left
fibula, left medial malleolus and left distal tibia. Postop patient was started on full dose for aspirin DVT prophylaxis. Orthopedic recommended strict not weightbearing to left lower extremity. Patient was eval by physical and Occupational
Therapy who recommended acute versus SNF. Acute rehab was denied by insurance company. Patient be discharged to halfway facility. Patient was recommend to follow-up outpatient with orthopedic for postop follow-up.
Discharge Plan
-
Patient Disposition: Assisted/SNF
Discharge Diagnosis/Procedures: Acute Left ankle trimalleolar fracture Status post open reduction internal fixation of left fibula, left medial malleolus and left distal tibia
Condition: Fair
Diet: As tolerated
Activity: With assistance and As tolerated
Additional Activity: Continue strict NWB LLE.
Driving Restrictions: No driving
Activity Restrictions/Additional Instructions:
Dressing/splint to remain.
Ice/elevation for edema control.
Outpatient Ortho follow-up in 2 weeks for staple removal and application of short-leg cast x6 additional weeks.
Referrals:
Wilfrid Awad MD [Family Provider] - in less than 1 week
Luigi Howard MD [Active] - in two weeks (call to make post op appt.)
Prescriptions:
New
acetaminophen 325 mg Tablet
650 mg PO Q4HPRN PRN (Reason: mild pain/Headache) Qty: 20 0RF
docusate sodium 100 mg Capsule
100 mg PO BID 30 Days Qty: 60 0RF
oxycodone 5 mg Tablet
5 mg PO Q6HPRN PRN (Reason: mod severe pain) Qty: 12 0RF
aspirin 325 mg Tablet
325 mg PO DAILY 25 Days Qty: 25 0RF
pantoprazole [Protonix] 40 mg tablet,delayed release (DR/EC)
40 mg PO DAILY Qty: 25 0RF
polyethylene glycol 3350 17 gram Powder In Packet
17 g PO DAILY 30 Days Qty: 30 0RF
Continued
sertraline 100 MG tablet
100 mg PO HS
valproic acid 250 MG capsule
750 mg PO BID
carbamazepine 200 MG tablet
200 mg PO BID
levothyroxine [Synthroid] 88 MCG tablet
88 mcg PO HS
famotidine [Pepcid] 20 mg Tablet
20 mg PO DAILY
rosuvastatin 40 mg Tablet
40 mg PO HS
Held
aspirin [Ecotrin Low Strength] 81 MG tablet,delayed release (DR/EC)
81 mg PO HS
Hold Instructions: Resume on 03/25/24.
Discharge Orders:
Discharge Patient (As Directed); Ordered 02/28/24
Ordered By: Jose F Gorman
Discharge Date and Time
Print Language: MONGOLIAN
[2024-02-28 15:39] VITALS: BP 135/65
== END 2024-02-28 16:03 | DRG 494 ==
LOC: 2 SOUTH 17:37
PROVIDERS: Physician Assistant Surgical; Registered Nurse; ADMITTING PHYSICIAN Hospitalist; ATTENDING PHYSICIAN Hospitalist; CONSULT PHYSICIAN Orthopaedic Surgery Hand Surgery; EMERGENCY PHYSICIAN Emergency Medicine; FAMILY PHYSICIAN Family Medicine
PROC: 0QSK04Z Reposition Left Fibula with Internal Fixation Device, Open Approach (ICD-10-PCS; 2024-02-26)
PROC: 0QSH04Z Reposition Left Tibia with Internal Fixation Device, Open Approach (ICD-10-PCS; 2024-02-26)
DX: S82.852A Displaced trimalleolar fracture of left lower leg, initial encounter for closed fracture (principal); S82.872A Displaced pilon fracture of left tibia, initial encounter for closed fracture; W01.0XXA Fall on same level from slipping, tripping and stumbling without subsequent striking against object, initial encounter; I69.341 Monoplegia of lower limb following cerebral infarction affecting right dominant side; G40.909 Epilepsy, unspecified, not intractable, without status epilepticus; I48.0 Paroxysmal atrial fibrillation; Z95.0 Presence of cardiac pacemaker; Z87.74 Personal history of (corrected) congenital malformations of heart and circulatory system
CPT/HCPCS: 29515; 73564; 73610; 73700; 76000; 80048; 80053; 85014; 85018; 85025; 86850; 86900; 86901; 93005; 96374; 96376; 97116; 97163; 97167; 97530; 97535; 99285